=== PATIENT | female | born 1975 | race African-American/Black ===

== ENCOUNTER 2016-12-19 16:10 | Emergency (ER) | payer OTHER ==
[~2016-12-19] VITALS: Ht 157.5 cm; Wt 139.1 kg
[~2016-12-19 16:10] MED LIST: BIRTH CONTROL PO; MOTRIN800 MG PO; NORCO 7.5/321 TABLET PO
[2016-12-19 16:40] VITALS: BP 152/95
[2016-12-19 17:20] LABS: HEMATOCRIT 40.8 % (36.0-46.0); MCH 26.5 PG (29.0-34.0); MCHC 32.1 G/DL (30.0-36.0); MCV 82.4 FL (83-99); MEAN PLAT.VOLUME 9.8 uM^3 (9.5-12.4); PLATELET COUNT 350 K/uL (156-360); RBC DIS.WIDTH-CV 13.9 % (11.8-14.6); RBC DIS.WIDTH-SD 41.4 % (39-53); RED BLOOD COUNT 4.95 M/uL (3.80-5.20); WHITE BLOOD COUNT 13.5 K/uL (4.1-10.2)
[2016-12-19 17:34] LABS: CHLORIDE 105 mEq/L (99-109); POTASSIUM 4.3 mEq/L (3.7-5.4); SODIUM 136 mEq/L (136-147)
[2016-12-19 17:36] LABS: GLUCOSE 100 mg/dL (70-99)
[2016-12-19 17:37] LABS: ANION GAP 8 MEQ/L (2-14)
[2016-12-19 17:40] LABS: GFR ESTIMATE (CALCULATED) > 59 mL/min/; UREA NITROGEN (BUN) 12 mg/dL (9-23)
== END 2016-12-19 18:23 | disposition home or self-care (01) ==
LOC: EME 16:10
PROVIDERS: Physician Assistant Medical
DX: R60.0 Localized edema (principal); J45.909 Unspecified asthma, uncomplicated
CPT/HCPCS: 71020; 80048; 83880; 85027; 99281; 99284